=== PATIENT | male | born 1950 | race Caucasian/White ===

== ENCOUNTER → 2017-09-15 | Outpatient (CLI) | payer MEDICARE, OTHER ==
[~2017-09-15] MED LIST: AZIT-17 PO; DABI75CA4 PO; DRON400T4 PO; DULO30CA35 PO; ESOM40CA6 PO; GABA-549 PO; IBUP200C71 PO; LISI-362 PO; MULT1CAP59 PO; OMEP-137 PO; PANT40TA63 PO; SOT80 FT; TRAM-420 PO; ZOST19404 SQ
--- NOTE | 2017-09-15 11:20 | EKG ---
[place]AC[place] [facility] [place] NAME: NOE WARNER : [id number] MR: [id number] V: [id number] EXAM DATE: ORDERING PHYSICIAN: NATALIIA MENESES TECHNOLOGIST: JAZMÍN Fields Reason : PREOP-KNEE Blood Pressure : / mmHG Vent. Rate : 068 BPM Atrial Rate : 357 BPM P-R Int : 000 ms QRS Dur : 144 ms QT Int : 424 ms P-R-T Axes : 000 077 062 degrees QTc Int : 450 ms Atrial fibrillation Right bundle branch block Abnormal ECG No previous ECGs available Referred By: TROY MCNEAL Confirmed By:
[2017-09-15 11:32] LABS: PLATELET COUNT, AUTOMATED 220 K/uL (150-450)
== END ==
LOC: LAB 10:54
PROVIDERS: ATTEND Nurse Practitioner Family
DX: Z01.818 Encounter for other preprocedural examination (principal); I48.91 Unspecified atrial fibrillation; I45.10 Unspecified right bundle-branch block; R94.31 Abnormal electrocardiogram [ECG] [EKG]
CPT/HCPCS: 36415; 81001; 82040; 82247; 82310; 82374; 82435; 82565; 82947; 84075; 84132; 84155; 84295; 84450; 84460; 84520; 85025; 93005

== ENCOUNTER → 2017-09-18 | Outpatient (CLI) | payer MEDICARE, OTHER ==
[~2017-09-18] MED LIST changes: +LOSA100T67 PO
== END ==
LOC: LAB 09:38
PROVIDERS: ATTEND Nurse Practitioner Family
DX: Z01.818 Encounter for other preprocedural examination (principal); A49.01 Methicillin susceptible Staphylococcus aureus infection, unspecified site
CPT/HCPCS: 87071; 87077; 87186

== ENCOUNTER 2017-12-21 13:00 | Outpatient (RCR) | payer MEDICARE, OTHER ==
--- NOTE | 2017-10-08 13:49 | PT INITIAL EVALUATION ---
MEDICAL DIAGNOSIS: L TKA TREATMENT DIAGNOSIS: same DATE OF ONSET: 09/30/17 SUBJECTIVE: Cecil Kilgore presents to physical therapy status post L knee TKA on 09-30-17. He reports that he has been utilizing his CPM for 1.5 hours 2 times a day. He reports the current settings to be -2 to 70 degrees. He reports that he has 14 stairs to go up and down into his apartment. He reports that those steps are going well. He reports that he has been changing his dressing as needed. He reports that he feels like the pain is getting less and less with time. Pain location is L posterior capsule and described as achy. Pain scale is 4 on a ten point pain scale. Pain is worse with movement and better with rest and ice. REHAB PROBLEM LIST: Increased Pain Decreased ROM Decreased Strength Decreased Endurance Decreased Balance Decreased Function Decreased ADL's Decreased Mobility Decreased Gait PREVIOUS MEDICAL HISTORY: See EMR OCCUPATION: OBJECTIVE: Incision is healing well; no signs or symptoms of infection Posture: He demonstrates minimal B rounded shoulders, minimal forward head, minimal thoracic kyphosis, and minimal lumbar lordosis. ROM: L knee PROM: extension: 0 degrees. L knee PROM: Flexion: 119 degrees. L knee AROM: extension: 5 degrees. L knee AROM: Flexion: 119 degrees. Strength: Quad la degrees Palpation: TTP: L knee posterior capsule Mobility: Modified Independent Gait: With FWW, he demonstrated the following gait mechanics: increased base of support, decreased velocity, decreased L knee flexion, normal step lengths , decreased swing phase of the gait cycle, increased double limb, increased stance swing phase of the gait cycle, and decreased pelvic rotation. Balance: Will test in the future ASSESSMENT: Cecil will benefit from skilled physical therapy addressing the listed impairments to improve function and QOL. Short Term Goals 2 weeks: Pt will demonstrate full PROM-AROM of L knee extension and flexion from baseline to 0-130 degrees to improve function and QOL. 4 weeks: Pt will demonstrate improve strength with his L quad resulting in zero quad lag to improve function and QOL. 8 weeks: Pt will demonstrate significant improvements in L LE strength from baseline to 4+/5 or greater to improve function and QOL. Patient's Goals improve ROM, strength, and get back to normal life activities PLAN: Patient to be seen for Manual Therapy/STM/MET Strengthening/condition Ice/Heat Range of Motion Spinal Stabilization Work Hardening/Cond Stretching Iontophoresis Neuromuscular Re-ed Closed Chain Program Electrical Stim Posture/Body mechanics Gait Trg/Balance Trg Home Exercise Program Therapeutic Activities 2-3x/week for 2 Months If you have any questions, comments, or concerns about this report or plan, please contact me at . Thank you, Jackson Alvarenga, PT, DPT SURAJD
--- NOTE | 2017-11-03 12:38 | PT PLAN OF CARE ---
Physician: August Queen MD Patient is being seen: 2-3x/week Therapist: Jackson Alvarenga, PT, DPT Medical Diagnosis: L TKA Treatment Diagnosis: same Date of Onset: 09/30/17 Date of Initial Evaluation: 10/07/17 Date patient was last seen: 11/02/17 Number of treatments: 10 Number of cancellations/No shows: 2 INTERVENTIONS: Manual Therapy/STM/MET Strengthening/condition Ice/Heat Range of Motion Spinal Stabilization Work Hardening/Cond Stretching Iontophoresis Neuromuscular Re-ed Closed Chain Program Electrical Stim Posture/Body mechanics Gait Trg/Balance Trg Home Exercise Program Therapeutic Activities GOALS: 2 weeks: Pt will demonstrate full PROM-AROM of L knee extension and flexion from baseline to 0-130 degrees to improve function and QOL. MET 4 weeks: Pt will demonstrate improve strength with his L quad resulting in zero quad lag to improve function and QOL.MET 8 weeks: Pt will demonstrate significant improvements in L LE strength from baseline to 4+/5 or greater to improve function and QOL.Progressing PATIENT'S GOAL: improve ROM, strength, and get back to normal life activities: progressing Status of Patient's Goals: Progressing Patient Compliance: Good Prognosis: Excellent Reasons for continuing therapy: This is a progress note for Cecil Kilgore. Cecil has been feeling physical ill over the last 3 days and has been worried about maintaining his range of motion and quad strength since he has not been able to perform it the last 3 days. He reduced his foto knee from 75% to 46% over the last 10 sessions. He continues to improve his PROM-AROM of his L knee extension and flexion. He currently demonstrated 0-135 degrees of PROM-AROM of L knee extension and flexion. He demonstrates zero degrees of lag resulting in increased quad contraction. He has reduced from FWW to cane to independent with normal gait mechanics (minor deviation of increased lateral trunk movement during gait). His incision is fully healing and is improving with increased accessory mobility. We will continue to improve L LE strength, gait mechanics, endurance, maintain L knee PROM-AROM, improve incision mobility, and return to prior level of function. Posture: He demonstrates minimal B rounded shoulders, minimal forward head, minimal thoracic kyphosis, and minimal lumbar lordosis. ROM: L knee PROM: extension: 0 degrees. L knee PROM: Flexion: 135 degrees. L knee AROM: extension: 0 degrees. L knee AROM: Flexion: 135 degrees. Strength: Quad la degrees Palpation: TTP: L knee posterior capsule Mobility: Independent MTDD
--- NOTE | 2017-12-15 15:51 | PT PLAN OF CARE ---
Physician: August Queen MD Patient is being seen: 3x/week Therapist: Jackson Alvarenga, PT, DPT Medical Diagnosis: L TKA Treatment Diagnosis: same Date of Onset: 09/30/17 Date of Initial Evaluation: 10/07/17 Date patient was last seen: 12/14/17 Number of treatments: 20 Number of cancellations/No shows:2 INTERVENTIONS: Manual Therapy/STM/MET Strengthening/condition Ice/Heat Range of Motion Spinal Stabilization Work Hardening/Cond Stretching Iontophoresis Neuromuscular Re-ed Closed Chain Program Electrical Stim Posture/Body mechanics Gait Trg/Balance Trg Home Exercise Program Therapeutic Activities GOALS: 2 weeks: Pt will demonstrate full PROM-AROM of L knee extension and flexion from baseline to 0-130 degrees to improve function and QOL. MET 4 weeks: Pt will demonstrate improve strength with his L quad resulting in zero quad lag to improve function and QOL.MET 8 weeks: Pt will demonstrate significant improvements in L LE strength from baseline to 4+/5 or greater to improve function and QOL.MET PATIENT'S GOAL: improve ROM, strength, and get back to normal life activities: progressing Status of Patient's Goals: Progressing Patient Compliance: Good Prognosis: Excellent Reasons for continuing therapy: This is a progress note for Cecil Kilgore. He reports that he is doing well. He reports that he continues to have minimal or mild knee pain at night; however, he reports that it feels like it is definitely getting better. He reduced his FOTO knee from 75% to 46% to 18% over the last 20 sessions. He continues to improve his PROM-AROM of his L knee extension and flexion. He currently demonstrated -2-0-148 degrees of PROM-AROM of L knee extension and flexion. He demonstrates zero degrees of lag resulting in increased quad contraction. He has reduced from FWW to cane to independent with normal gait mechanics. His incision is fully healing and is improving with increased accessory mobility. Furthermore, he continues to demonstrate improvements with gluteal, quad, hamstring, gastroc/soleus strengthening and is becoming close to completing formal PT and transitioning to a home exercise program. We will continue to improve L LE strength, gait mechanics, endurance, maintain L knee PROM-AROM, improve incision mobility, return to prior level of function, and along with helping him become independent on a home exercise program. Posture: He demonstrates minimal B rounded shoulders, minimal forward head, minimal thoracic kyphosis, and minimal lumbar lordosis. ROM: L knee PROM: extension: -2 degrees. L knee PROM: Flexion: 148 degrees. L knee AROM: extension: 0 degrees. L knee AROM: Flexion: 146 degrees. Strength: Quad la degrees Mobility: Independent If you have any questions, please contact me at [phone]. Thank you, Jackson Alvarenga, PT, DPT IDA
[~2017-12-21 13:00] MED LIST changes: +IBUP-136 PO; -IBUP200C71 PO
--- NOTE | 2017-12-21 15:09 | PT PLAN OF CARE ---
Physician: August Queen MD Patient is being seen: 2-3x/week Therapist: Jackson Alvarenga, PT, DPT Medical Diagnosis: L TKA Treatment Diagnosis: same Date of Onset: 09/30/17 Date of Initial Evaluation: 10/07/17 Date patient was last seen: 12/21/17 Number of treatments: 21 Number of cancellations/No shows: 2 INTERVENTIONS: Manual Therapy/STM/MET Strengthening/condition Ice/Heat Range of Motion Spinal Stabilization Work Hardening/Cond Stretching Iontophoresis Neuromuscular Re-ed Closed Chain Program Electrical Stim Posture/Body mechanics Gait Trg/Balance Trg Home Exercise Program Therapeutic Activities GOALS: 2 weeks: Pt will demonstrate full PROM-AROM of L knee extension and flexion from baseline to 0-130 degrees to improve function and QOL. MET 4 weeks: Pt will demonstrate improve strength with his L quad resulting in zero quad lag to improve function and QOL.MET 8 weeks: Pt will demonstrate significant improvements in L LE strength from baseline to 4+/5 or greater to improve function and QOL.MET PATIENT'S GOAL: improve ROM, strength, and get back to normal life activities: progressing Status of Patient's Goals: MET Patient Compliance: Good Prognosis: Excellent Reasons for continuing therapy: This is a discharge note for Cecil Kilgore. He reports that he is doing well. He reports that the knee enjoys all of the hiking. He reports that the night pain is getting better. He reports that there continues to be a significant amount of swelling reduction each and every day. He reports that the knee is starting to feel like a knee again. He denies any current pain. He reduced his FOTO knee from 75% to 46% to 18% over the last 21 sessions. He continues to improve his PROM-AROM of his L knee extension and flexion. He currently demonstrated -2-0-148 degrees of PROM-AROM of L knee extension and flexion. He demonstrates zero degrees of lag resulting in increased quad contraction. He has returned to prior level of function with his gait mechanics. Furthermore, he continues to demonstrate improvements with gluteal, quad, hamstring, gastroc/soleus strengthening and will continue to get stronger with his home exercise program that he will completed at the [facility] 3 days per week moving forward. He has demonstrated 90% return to accessory mobility of his incision and NIL restriction with patellar accessory mobility in all directions. He continues to demonstrate quick to fatigue with his B glute med along with SL movements that will improve with his home exercise program. Other than that, he has met all of his goals and is ready for discharge to his home exercise program. Posture: He demonstrates minimal B rounded shoulders, minimal forward head, minimal thoracic kyphosis, and minimal lumbar lordosis. ROM: L knee PROM: extension: -2 degrees. L knee PROM: Flexion: 148 degrees. L knee AROM: extension: 0 degrees. L knee AROM: Flexion: 146 degrees. Strength: Quad la degrees Mobility: Independent If you have any questions, please contact me at [phone]. Thank you, Jackson Alvarenga, PT, DPT MTDD
== END 2017-12-21 18:00 | disposition home or self-care (01) ==
LOC: PT 13:00
PROVIDERS: ATTEND Orthopaedic Surgery
DX: Z47.1 Aftercare following joint replacement surgery (principal); Z96.652 Presence of left artificial knee joint
CPT/HCPCS: 97010; 97032; 97110; 97140; 97161; G0283

== ENCOUNTER → 2018-03-18 | Outpatient (CLI) | payer MEDICARE, OTHER ==
[~2018-03-18] MED LIST changes: -LOSA100T67 PO; +LOSA100T69 PO
== END ==
LOC: LAB 12:29
PROVIDERS: ATTEND Internal Medicine Cardiovascular Disease
DX: I48.91 Unspecified atrial fibrillation (principal); I10 Essential (primary) hypertension; I71.2 Thoracic aortic aneurysm, without rupture
CPT/HCPCS: 82465; 83718; 84478

== ENCOUNTER → 2018-03-18 | Outpatient (CLI) | payer MEDICARE, OTHER | LOC: LAB 12:27 | PROVIDERS: ATTEND Urology | DX: Z00.00 Encounter for general adult medical examination without abnormal findings (principal); N40.1 Benign prostatic hyperplasia with lower urinary tract symptoms | CPT/HCPCS: 36415; 84153 ==

== ENCOUNTER → 2018-06-21 | Outpatient (CLI) | payer MEDICARE, OTHER ==
[~2018-06-21] MED LIST changes: +ATOR-1 PO; +GLUC100026 PO; -LOSA100T69 PO; +LOSA100T75 PO; +TAMS0.4C70
== END ==
LOC: LAB 15:54
PROVIDERS: ATTEND Nurse Practitioner Family
DX: E78.5 Hyperlipidemia, unspecified (principal); I10 Essential (primary) hypertension
CPT/HCPCS: 36415; 82040; 82247; 82310; 82374; 82435; 82565; 82947; 84075; 84132; 84155; 84295; 84443; 84450; 84460; 84520

== ENCOUNTER → 2018-10-27 | Outpatient (CLI) | payer MEDICARE, OTHER | LOC: LAB 14:11 | PROVIDERS: ATTEND Internal Medicine Cardiovascular Disease | DX: I71.2 Thoracic aortic aneurysm, without rupture (principal) | CPT/HCPCS: 36415; 82040; 82247; 82310; 82374; 82435; 82565; 82947; 84075; 84132; 84155; 84295; 84450; 84460; 84520 ==

== ENCOUNTER → 2018-12-20 | Outpatient (CLI) | payer MEDICARE, OTHER | LOC: LAB 14:25 | PROVIDERS: ATTEND Nurse Practitioner Family | DX: G62.9 Polyneuropathy, unspecified (principal) | CPT/HCPCS: 36415; 82607; 82746 ==